=== PATIENT | male | born 1945 | race Caucasian/White ===

== ENCOUNTER 2022-10-20 01:24 | Day surgery (SDC) | payer MEDICARE, SELFPAY ==
[2022-10-11 11:16] VITALS: BMI 26.3
[2022-10-20 12:02] VITALS: BP 174/78; PULSE 57; RESP 18; TEMP 35.6; O2SAT 100
--- NOTE | 2022-10-20 12:12 | PM.HPGS ---
History of Present Illness History of Present Illness Consent: Risks, benefits, and alternatives have been discussed and questions answered. Patient agrees to proceed with procedure. Chief complaint: neoplasm screening Narrative: Adin Siddiqi is a 77 year old male Referred by primary care service for neoplasia screening colonoscopy. Patient accompanied by his . Patient unable to give history because of dementia. Patient's states that he has lost weight perhaps 20-40 lb over the last 2 months. Patient has been treated for diabetes and has rather significant ongoing diarrhea over the last several months as well. 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 Family history is noncontributory. No bleeding has been described. Colonoscopy is requested for screening purposes. Review of Systems Review of Systems: Review of systems noncontributory. [facility] Family History Family History (Updated 01/31/17 @ 18:05 by DOCTOR UNKNOWN) Father Diabetes mellitus Hypertension Family history of coronary artery disease Sibling Diabetes mellitus Hypertension Mother Hypertension Cerebrovascular accident Family history of malignant neoplasm Social History Social History Smoking status: Never smoker Alcohol intake: never Substance use type: does not use Living arrangements: with family Spiritual care concerns: No Meds Home Medications and Allergies Home Medications Medication Instructions Recorded Confirmed Type aspirin 81 mg tablet 81 mg PO DAILY 10/11/22 10/20/22 History atorvastatin 10 mg tablet 10 mg PO DAILY 10/11/22 10/20/22 History cetirizine 10 mg tablet (Zyrtec) 10 mg PO DAILY 10/11/22 10/20/22 History lisinopril 5 mg tablet 5 mg PO DAILY 10/11/22 10/20/22 History metformin 500 mg tablet,extended 500 mg PO BID 10/11/22 10/20/22 History release 24 hr eteujfzl-oeqropjl-xrzsq acid 400 1 tablet PO DAILY 10/11/22 10/20/22 History mcg-vit K 20 mcg-lycop 300 mcg tablet Allergies Allergy/AdvReac Type Severity Reaction Status Date / Time No Known Allergies Allergy Verified 10/20/22 11:59 Vital Signs Vital Signs - 24 hr 10/20/22 12:02 Temperature 96.0 F L Pulse Rate 57 L Respiratory Rate 18 Blood Pressure 174/78 H Pulse Oximetry 100 Oxygen Delivery Room Air Exam Narrative: Physical exam reveals patient to be alert. Vital signs stable. HEENT exam is unremarkable. Patient is anicteric. Lungs are clear to auscultation and percussion. Heart is without murmur or extra sounds. Abdomen bowel sounds are present soft nontender with no organomegaly. Digital external rectal exam normal. Assessment and Plan Assessment and plan (1) Encounter for screening colonoscopy: Code(s): Z12.11 - Encounter for screening for malignant neoplasm of colon Status: Acute Assessment and Plan: Patient referred for neoplasia screening by primary care service colonoscopy to be performed today. (2) Weight loss: Code(s): R63.4 - Abnormal weight loss Status: Acute Assessment and Plan: Patient with recent weight loss over last 2 months. This is non intentional. Family is concerned and have requested colonoscopy to evaluate more thoroughly. (3) Diarrhea: Code(s): R19.7 - Diarrhea, unspecified Status: Acute Assessment and Plan: Patient reported to have chronic diarrhea etiology unclear. May be related to his diabetes. recent workup not available for review. Colonoscopy requested by primary care service will be performed.
[2022-10-20] MEDS: LACTATED RINGERS 1,000 ML 150 ML IV CONT (12:18)
[2022-10-20] MEDS: GENTAMICIN 80MG/SOD CHL 50 ML 80 MG/50 ML BAG 100 MG IVPB (12:19)
[2022-10-20 12:22] LABS: Glucose Point of Care 96 mg/dl (65-105)
--- NOTE | 2022-10-20 12:31 | P.PNAN_ITS ---
Anes - Initial Pre Proc Eval Procedure: Operation Date: 10/20/22 12:30 Proposed Procedures p Screening Colonoscopy - Bill Tatum MD Date/Time: 10/20/22 12:31 Surgeon: Bill Tatum MD Pre Op Diagnosis: neoplasm screening Patient Data Age: 77 Gender: M Height: 1.73 m Weight: 76.1 kg Last Vital Signs Temp 96.0 F L 10/20/22 12:02 Pulse 57 L 10/20/22 12:02 Resp 18 10/20/22 12:02 BP 174/78 H 10/20/22 12:02 Pulse Ox 100 10/20/22 12:02 O2 Del Method Room Air 10/20/22 12:02 Allergies Allergy/AdvReac Type Severity Reaction Status Date / Time No Known Allergies Allergy Verified 10/20/22 11:59 Home Medications Medication Instructions Recorded Confirmed Type aspirin 81 mg tablet 81 mg PO DAILY 10/11/22 10/20/22 History atorvastatin 10 mg tablet 10 mg PO DAILY 10/11/22 10/20/22 History cetirizine 10 mg tablet (Zyrtec) 10 mg PO DAILY 10/11/22 10/20/22 History lisinopril 5 mg tablet 5 mg PO DAILY 10/11/22 10/20/22 History metformin 500 mg tablet,extended 500 mg PO BID 10/11/22 10/20/22 History release 24 hr khzxavyp-otaqlzdt-cevib acid 400 1 tablet PO DAILY 10/11/22 10/20/22 History mcg-vit K 20 mcg-lycop 300 mcg tablet Laboratory Tests 10/20/22 12:12 POC Capillary Glucose 96 mg/dl (65-105) Patient hx anesthesia problems: none Family hx anesthesia problems: none Results Review: All pre-operative results and documents have been reviewed as part of the pre- operative evaluation. [facility] Family History Family History (Updated 01/31/17 @ 18:05 by DOCTOR UNKNOWN) Father Diabetes mellitus Hypertension Family history of coronary artery disease Sibling Diabetes mellitus Hypertension Mother Hypertension Cerebrovascular accident Family history of malignant neoplasm Social History Social History Smoking status: Never smoker Alcohol intake: never Substance use type: does not use Living arrangements: with family Spiritual care concerns: No Anes - Eval Final PreProcedure Day of Procedure 10/20/22 12:31 Patient weight: normal Heart: regular rate and rhythm Lungs: clear to auscultation Airway: Mallampati scale class II Neurological: alert and oriented Last oral intake: >/= 8 hours ASA classification: III Emergent: no Anesthetic plan: proceed Anesthesia type and monitoring: general GIVS and standard monitoring Results Review: All pre-operative results and documents have been reviewed as part of the pre- operative evaluation. Informed Consent: The patient's anesthetic plan and its attendant risks and benefits were discussed with the patient/family/POA. Questions were solicited and answers provided to the satisfaction of the patient/family/POA.
[2022-10-20] MEDS: AMPICILLIN 2 GM/NS 100 ML 2 GM/100 ML BAG IVPB (12:49)
[2022-10-20 13:13] VITALS: BP 120/71; PULSE 54; RESP 23; O2SAT 100
[2022-10-20 13:23] VITALS: BP 138/87; PULSE 55; RESP 19; O2SAT 99
[2022-10-20 13:33] VITALS: BP 162/86; PULSE 50; RESP 21; O2SAT 100
== END 2022-10-20 13:43 | disposition home or self-care (01) ==
PROVIDERS: PCP Internal Medicine; Visit Provider Internal Medicine Gastroenterology
PROC: 0DJD8ZZ Inspection of Lower Intestinal Tract, Via Natural or Artificial Opening Endoscopic (ICD-10-PCS; CPT 45378; principal; 2022-10-20 12:30)
DX: Z12.11 Encounter for screening for malignant neoplasm of colon (principal); K64.4 Residual hemorrhoidal skin tags; R19.7 Diarrhea, unspecified; R63.4 Abnormal weight loss; F03.90 Unspecified dementia, unspecified severity, without behavioral disturbance, psychotic disturbance, mood disturbance, and anxiety; E11.9 Type 2 diabetes mellitus without complications; Z95.3 Presence of xenogenic heart valve; Z79.84 Long term (current) use of oral hypoglycemic drugs; Z79.82 Long term (current) use of aspirin
CPT/HCPCS: 45380; 82948; 88305; J0290; J1580; J2704; J7120

== ENCOUNTER 2025-02-27 11:36 | Outpatient (CLI) | payer MEDICARE, SELFPAY ==
--- OUTSIDE RECORDS SUMMARY | 2025-02-27 10:30 | XMS_ITS | Encounter Summary ---
Author Organization [facility] [employer] [facility] Address [address] [place] [address] Care Team Providers Care Patient Liaison Name Role Phone Kenton Sharma MD Primary Care Provider Reason for Visit * Reason Comments Establish Care Encounter Details Date Type Department Care Team (Late st Contact Info) Description 02/27/2025 10:30 AM CDT Office Visit [facility] Oncology and Hematology - [place] [place] [address] Tatiana Wilkerson MD [address] [place] [address] Chronic anemia (Primary Dx) Social History Tobacco Use Types Packs/Day Years Used Date Smoking Tobacco: Never Smokeless Tobacco: Never Alcohol Use Standard Drinks/Week Comments Not Currently 0 (1 standard drink = 0.6 oz pur e alcohol) Sex and Gender Information Value Date Recorded Sex Assigned at Not on file Legal Sex Male 2:48 PM [employer] Gender Identity Not on file Sexual Orientation Not on file documented as of this encounter Last Filed Vital Signs Vital Sign Reading Time Taken Comments Blood Pressure 150/80 02/27/2025 10:47 AM CDT Pulse 70 02/27/2025 10:44 AM CDT Temperature 37.2 C (99 F) 02/27/2025 10:44 AM CDT Respiratory Rate 16 02/27/2025 10:44 AM CDT Oxygen Saturation 97% 02/27/2025 10:44 AM CDT Inhaled Oxygen Concentration - - Weight 70.9 kg (156 lb 6.4 oz) 02/27/2025 10:44 AM CDT Height 172.7 cm (5' 8) 02/27/2025 10:44 AM CDT Body Mass Index 23.78 02/27/2025 10:44 AM CDT documented in this encounter Plan of Treatment Upcoming Encounters Date Type Department Care Team (Late st Contact Info) Description 04/03/2025 4:30 PM CDT Telephone Check Up [facility] Oncology and Hematology [facility] [address] [place] [phone] Jeremiah Emerson MD [address] [facility] [address] [place] [address] Scheduled Orders Name Type Priority Associated Diagnoses Orde r Schedule CBC WITH DIFFERENTIAL Lab Stat Chronic anemia Expected: 02/27/2025, Expires: 02/27/2026 FERRITIN Lab Routine Chronic anemia Expected: 02/27/2025, Expires: 02/27/2026 IRON, TIBC, AND PERCENT SATURATION Lab Routine Chronic anemia Expected: 02/27/2025, Expires: 02/27/2026 VITAMIN B12 AND FOLATE Lab Routine Chronic anemia Expected: 02/27/2025, Expires: 02/27/2026 TSH Lab Routine Chronic anemia Expected: 02/27/2025, Expires: 02/27/2026 RETICULOCYTES Lab Routine Chronic anemia Expected: 02/27/2025, Expires: 02/27/2026 PROTEIN ELECTROPHORESIS W/REFLEX,SERUM Lab Routine Chronic anemia Expected: 02/27/2025, Expires: 02/27/2026 KAPPA/LAMBDA, FREE LIGHT CHAINS Lab Routine Chronic anemia Expected: 02/27/2025, Expires: 02/27/2026 documented as of this encounter Visit Diagnoses Diagnosis Chronic anemia- Primary Anemia, unspecified documented in this encounter Care Teams Patient Liaison Relationship Specialty Start Date End Date Kenton Sharma MD [address] [place] [address] PCP - General Internal Medicine 02/27/25 documented as of this encounter
[2025-02-27 12:01] LABS: Hematocrit 38.0 % (42.0-52.0); Hemoglobin 13.2 g/dL (14.0-18.0); Immature Granulocyte Percent A 0.4 % (0-0.5); Immature Reticulocyte Fraction 3.1 % (3.0-15.9); Lymphocytes Absolute Auto 0.42 K/mm3 (0.9-3.2); Mean Corpuscular HGB Conc 34.7 g/dl (32-36); Mean Corpuscular Hemoglobin 31.7 pg (26-34); Mean Corpuscular Volume 91.3 fl (80-100); Nucleated Red Blood Cells Absolute Auto 0.000 K/mm3 (0.0-0.012); Nucleated Red Blood Cells Perc 0.0 % (0.0-0.2); Platelet Count Result 164 k/mm3 (150-375); Red Blood Count 4.16 M/mm3 (4.6-6.20); Reticulocyte Hemoglobin Conten 36.7 pg (28.2-36.6); Reticulocytes Absolute 0.05 10^6/uL (0.02-0.10); White Blood Count 5.2 K/mm3 (4.5-10.0)
[2025-02-27 12:27] LABS: Iron 49 ug/dL (49-181)
[2025-02-27 12:40] LABS: Percent Iron Saturation 18 % (20-50)
[2025-02-27 12:59] LABS: Thyroid Stimulating Hormone 1.820 uIU/mL (0.465-4.680)
[2025-02-27 13:08] LABS: Ferritin 89.80 ng/mL (11.1-264)
[2025-02-27 13:35] LABS: Vitamin B12 501.0 pg/mL (239-931)
--- OUTSIDE RECORDS SUMMARY | 2025-02-27 13:48 | XMS_ITS | Clinical Summary ---
Author Organization [facility] [address] [place] [address] Care Team Providers Care Driver Medic Name Role Phone Alex Sharma MD Primary Care Provide r Manny Ontiveros MD Unavailable Allergies Active Allergy Reactions Criticality Noted Date Comments Donepezil Rash Medium 12/14/2016 Metformin Other (See comments) Reaction: diarhea, Medications aspirin 81 mg tablet Take one by mouth one time per day with niaspan 30 6 11/19/2008 Active atorvastatin calcium (ATORVASTATIN ORAL) Take 10 mg by mouth nightly 07/20/2021 Active lisinopriL (PRINIVIL,ZESTR IL) 5 mg tablet Take 5 mg by mouth daily 05/27/2021 Active multivitamin capsule Take 1 capsule by mouth daily Active cetirizine (ZyrTEC) 10 mg tablet Take 10 mg by mouth daily Active escitalopram (LEXAPRO) 10 mg tablet Take 1 tablet (10 mg total) by mouth daily 12/24/2024 Active Active Problems Problem Noted Date Diagnosed Date Aortic stenosis, severe 11/30/2021 Severe aortic stenosis 10/21/2021 Overview (10/21/2021): Added automatically from request for surgery [id number] Type 2 diabetes mellitus 11/02/2013 Overview (09/21/2016): DMII WO CMP NT ST UNCNTR Persistent insomnia 11/02/2013 Overview (09/21/2016): PERSISTENT INSOMNIA Generalized anxiety disorder 11/02/2013 Overview (09/21/2016): GENERALIZED ANXIETY DIS 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/02/2013 Overview (09/21/2016): MIXED HYPERLIPIDEMIA Benign hypertension 11/02/2013 Overview (09/22/2016): BENIGN HYPERTENSION Hypertension 11/02/2013 Overview (09/22/2016): HYPERTENSION NOS Hyperlipidemia 11/02/2013 Overview (09/24/2016): HYPERLIPIDEMIA NEC/NOS Frontotemporal dementia 08/02/2013 Overview (09/22/2016): Fronto-temporal dementia Bipolar II disorder 09/06/2007 Overview (09/22/2016): Bipolar 2 disorder Encounters Date Type Department Care Team Description 01/14/2025 2:30 PM CDT Office Visit [facility] [address] [place] [phone] Aster, Fan Samaniego MD Ataxia (Primary Dx); Other abnormalities of gait and mobility; Imbalance; Frontotemporal dementia (HCC) from Last 3 Months Immunizations Immunization Administration Dates Next Due Influenza, Split 04/26/2011,04/22/2010 Influenza, Trivalent, IM (MDV) 04/20/2009,2007 Influenza, Trivalent, Preservative Free, Intramu scular 04/17/2012 Pneumococcal Polysaccharide PPV23 03/13/2008 Surgical History Surgery Date Site/Laterality Comments FINGER SURGERY finger surgery TONSILLECTOMY CARDIAC CATHETERIZATION Medical History Medical History Date Comments Sleep apnea 2003 Sleep apnea Hyperlipidemia Hyperlipidemia Tonsillitis tonsillitis Dementia (HCC) dementia Type 2 diabetes mellitus Diabete s type 2; Comments: TMB 11/18/2013 - Hypertension Hypertension Chronic coronary artery disease Coronary artery disease Aortic valve stenosis Heart murmur Carotid arterial disease SOBOE (shortness of breath on exertion) Cataract Family History Medical History Relation Name Comments Coronary artery disease Father Hai nary artery disease; Diabetes type II Father Diabetes me llitus type 2; Coronary artery disease Mother Haiandrade bronson artery disease, premature; Leukemia Mother Leukemia; Stroke Mother Stroke; Dementia Other 1 Family history of Dementia; Diabetes Other 2 Family history of Diabetes mellitus; Heart disease Other 3 Family history of Heart disease; Stroke Other 4 Family history of Stroke; Diabetes type II Sister 1 Diabetes -T ype II; Diabetes type II Sister 2 Diabetes me llitus type 2; Relation Name Status Comments Father Mother Other 1 Other 2 Other 3 Other 4 Sister 1 Sister 2 Social History Tobacco Use Types Packs/Day Years Used Date Smoking Tobacco: Never Tobacco Cessation:Counseling Given: Not Answered Alcohol Use Standard Drinks/Week Comments No 0 (1 standard drink = 0.6 oz pur e alcohol) AUDIT-C Answer Date Recorded Q1: How often do you have a drink containing alcohol? Never 11/30/2021 Q2: How many drinks containi ng alcohol do you have on a typical day when you are drinking? Patient does not drink Q3: How often do you have si x or more drinks on one occasion? 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 Gender Identity Not on file Sexual Orientation Not on file Obstetrics History Last Filed Vital Signs Vital Sign Reading Time Taken Comments Blood Pressure 138/88 01/14/2025 2:16 PM CDT Pulse 58 01/14/2025 2:16 PM CDT Temperature 36.7 C (98.1 F) 12/01/2021 12:22 PM CDT Respiratory Rate 16 12/01/2021 12:22 PM CDT Oxygen Saturation 99% 01/14/2025 2:16 PM CDT Inhaled Oxygen Concentration - - Weight 70.8 kg (156 lb) 01/14/2025 2:16 PM CDT Height 172.7 cm (5' 8) 01/14/2025 2:16 PM CDT Body Mass Index 23.72 01/14/2025 2:16 PM CDT Plan of Treatment Health Maintenance Due Date Last Done Comments Albumin Creatinine Ratio, Urine 1944 Depression Screening 1944 Hemoglobin A1C 1944 Dilated Eye Exam 1944 Foot Exam 1944 Hepatitis B Screening 1962 Zoster Vaccine (1 of 2) 1994 Well Visit 65+ 2009 Lipid Panel 10/05/2013 10/05/2012 Fall Risk Assessment 12/01/2022 12/01/2021 eGFR 12/01/2022 12/01/2021, 11/23/2021 Covid-19 Vaccine (4 - 2024-2 6 season) 2025 07/30/2021, 09/22/2020, 08/05/2020 Influenza Vaccine (#1) 2025 , 03/24/2021, 05/01/2019, Additional history exists DTaP/Tdap/Td Vaccine (2 - Td or Tdap) 08/31/2027 08/30/2017 Pneumococcal vaccine 65+ Completed 017, 06/24/2015, 03/13/2008 Medical Devices Implanted Type Area Medical Dermatologist Device Identifier Shelf Expiration Date Model / Serial / Lot [employer] Device Clsr Perclose Prostyle Sut-Mediatd Closure-Repair Sys 31448-85 - [id number] Implanted:Qty: 1 on 11/30/2021 by Manny Ontiveros MD at [facility] [employer] [id number] / / [employer] Device Clsr Perclose Prostyle Sut-Mediatd Closure-Repair Sys 81806-71 - [id number] Implanted:Qty: 1 on 11/30/2021 by Manny Ontiveros MD at [facility] [employer] [id number] / / [employer] Kymberly 3 Commander Ramos 26mm Transcatheter Ultra Low Profile [id number] - [id number] - [id number] Implanted:Qty: 1 on 11/30/2021 by Manny Ontiveros MD at [facility] [employer] 03/29/2023 [id number] / [id number] / Angio-Seal Vip 6fr Closere Device [id number] - [id number] Implanted:Qty: 1 on 11/30/2021 by Manny Ontiveros MD at [facility] 07/19/2022 [id number] / / [id number] Procedures Procedure Name Priority Date/Time Associated Diagnosis Comments EGFR Routine 12/01/2021 7:20 AM CDT SERUM LIPID PANEL Routine 10/05/2012 3:1 0 AM CDT from Last 3 Months or Most Recently Relevant to Health Maintenance Results * eGFR (12/01/2021 7:20 AM CDT) eGFR 73 mL/min/1. 73 m2 GARCIA SANDOVAL Comment: Interpretive Data Reference Interval Normal >/= 90 mL/min/1.73m2 Mildly decreased* 60 - 89 mL/min/1.73m2 Mildly to moderately decreased 45 - 59 mL/min/1.73m2 Moderately to severely decreased 30 - 44 mL/min/1.73m2 Severely decreased 15 - 29 mL/min/1.73m2 Kidney Failure < 15 mL/min/1.73m2 *Relative to young adult level Estimated glomerular filtration rate is determined by the 2020 CKD-EPI equation recommended by the National Kidney Foundation (A Unifying Approach to GFR Estimation: Recommendations of the NKF-ASK Task Force on Reassessing the Inclusion of Race in Diagnosing Kidney Disease, JASN 2020). The CKD-EPI equation should not be used for patients with unstable renal function and has not been validated in children and those over 70. Current interpretive data was last reviewed 2021. Blood 12/01/2021 7:20 AM CDT 12/01/2021 8:20 AM CDT Manny Ontiveros MD LAB BLOOD ORDERABLES Final Resul t GARCIA SANDOVAL [id number] Department [place] [address] * Serum lipid panel (10/05/2012 3:10 AM CDT) Cholesterol 127 125 - 200 mg/dl HISTORICAL RESULTS HDL 50 > OR = 40 mg/dl HISTORICAL RESULTS Triglycerides 111 <150 mg/dl HISTO RICAL RESULTS LDL 55 <130 mg/dl HISTORICA L RESULTS Comment: Desirable range <100 mg/dL for patients with CHD or diabetes and <70 mg/dL for diabetic patients with known heart disease. Chol/HDL ratio 2.5 < OR = 5.0 calc HISTORICAL RESULTS Non-HDL cholesterol, calculated 77 mg/dl HISTORICAL RESULTS Comment: Target for non-HDL cholesterol is 30 mg/dL higher than LDL cholesterol target. Serum 10/05/2012 3:10 AM CDT Narrative HISTORICAL RESULTS - 10/05/2012 10:00 PM CDT Test performed at [facility] [address] [place] [address] Director: IMANI CRISTINA DO,MPH us Historical Provider LAB BLOOD ORDERABLES Shawna ardon Result HISTORICAL RESULTS from Last 3 Months or Most Recently Relevant to Health Maintenance Insurance UHC MEDICARE ADVANTAGE [facility] MEDICARE ADVANTAGE [facility] MEDICARE ADVANTAGE Care Teams Driver Medic Relationship Specialty Start Date End Date Alex Sharma MD [address] [place] [address] PCP - General Internal Medicine 10/20/21 Manny Ontiveros MD [address] [place] [address] Consulting Physician Cardiovascular Disease 12/01/21
--- OUTSIDE RECORDS SUMMARY | 2025-02-27 13:48 | XMS_ITS | Clinical Summary ---
Author Organization [facility] Address [address] [place] [address] Phone Care Team Providers Care Skid Strapper Name Role Phone Kenton Sharma MD Primary Care Provider Allergies No known active allergies Medications aspirin (RYAN CHEWABLE) 81 mg Tablet, Chewable Take 81 mg by mouth daily. Active atorvastatin (LIPITOR) 10 mg tablet Take 10 mg by mouth late in the day. Active cetirizine (ZyrTEC) 10 mg tablet Take 10 mg by mouth daily. Active escitalopram oxalate (LEXAPRO) 10 mg tablet Take 10 mg by mouth daily. 12/24/2024 Active lisinopriL (PRINIVIL) 10 mg tablet Take 10 mg by mouth daily. 10/25/2024 Active Active Problems Problem Noted Date Diagnosed Date Chronic anemia 02/27/2025 Encounters Date Type Department Care Team Description 02/27/2025 10:30 AM CDT Office Visit [facility] Oncology and Hematology - [place] [place] [phone] Tatiana Wilkerson MD Chronic anemia (Primary Dx) from Last 3 Months Family History Medical History Relation Name Comments No Known Problems Child 1 No Known Problems Child 2 No Known Problems Child 4 Diabetes Father Heart Disease Father Cancer Mother female cancer Heart Disease Mother Relation Name Status Comments Child 1 Alive Child 2 Alive Child 3 Unknown Child 4 Alive Father Mother Sister 1 Sister 2 Unknown Sister 3 Alive Social History Tobacco Use Types Packs/Day Years Used Date Smoking Tobacco: Never Smokeless Tobacco: Never Alcohol Use Standard Drinks/Week Comments Not Currently 0 (1 standard drink = 0.6 oz pur e alcohol) Sex and Gender Information Value Date Recorded Sex Assigned at Not on file 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 Gender Identity Not on file Sexual Orientation Not on file Last Filed Vital Signs Vital Sign Reading [...] Mass Index 23.78 02/27/2025 10:44 AM CDT Plan of Treatment Upcoming Encounters Date Type Department Care Team (Late st Contact Info) Description 04/03/2025 4:30 PM CDT Telephone Check Up [facility] Oncology and Hematology - [place] [address] [facility] [address] [place] [address] Jeremiah Emerson MD [address] [facility] [address] [place] [address] Health Maintenance Due Date Last Done Comments DIABETES ANNUAL FOOT EXAM 1962 DIABETES ANNUAL RETINAL EXAM 1962 DIABETES HBA1C Q 6 MONTHS 1962 DIABETES MICROALBUMIN ANNUAL SCREEN 1962 LDL CHOLESTEROL ANNUAL 1962 ZOSTER VACCINE (1 of 2) 1994 PNEUMOCOCCAL VACCINE 50+ YEA RS (2 of 2 - PCV) 03/13/2009 03/13/2008 RSV VACCINE (60+ or ) (1 - 1-dose 75+ series) 2019 [place]) Preventative Visit/Annual Wellness Visit 06/19/2024 10/18/2023 Traditional Medicare (ACO) A nnual Wellness Visit 10/18/2024 10/18/2023 INFLUENZA VACCINE (#1) 2025 , 05/02/2023, 03/16/2022, Additional history exists DTAP/TDAP/TD VACCINES (2 - T d or Tdap) 08/31/2027 08/30/2017 Insurance MEDICARE PART A AND B [employer] MEDICARE SUPPLEMENT [facility] [id number] Care Teams Skid Strapper Relationship Specialty Start Date End Date Kenton Sharma MD [address] [address] PCP - General Internal Medicine 02/27/25
--- OUTSIDE RECORDS SUMMARY | 2025-02-27 13:48 | XMS_ITS | Patient Health Record ---
Author Organization [facility] Address [address] [place] [address] Care Team Providers Care Business Support Coordinator Name Role Phone Edith BOOTH, [place] Primary Care Provider Un available Nathaniel Barrera Unavailable [phone] Reason For Referral No Information Medications Medication SIG (Take, Route, Frequency, Duration) Notes Start Date End Date Status OneTouch Verio Strip In Vitro 03/13/2023 Active Lisinopril 10 MG Tablet Oral 03/13/2023 Active Atorvastatin Calcium 10 MG Tablet Oral 03/13/2023 Active Ipratropium Leona 0.06 % Solution Nasal 03/13/2023 Active Lisinopril 5 MG Tablet Oral 03/13/2023 Active Escitalopram Oxalate 10 MG Tablet Oral 03/13/2023 Active Lexapro 10 MG Tablet Oral 03/13/2023 Active Alfuzosin HCl ER 10 MG Tablet Extended Release 24 Hour Oral 03/13/2023 Active metFORMIN HCl ER 500 MG Tablet Extended Release 24 Hour Oral 03/13/2023 Active OneTouch Delica Plus [id number] Miscellaneous 03/13/2023 Active ONETOUCH VERIO REFLECT METER *Reorder from [employer] for eRx and Interaction Alerts* 03/13/2023 Active SODIUM,POTASSIUM,MAG SULFATES 17.5 GRAM-3.13 GRAM-1.6 GRAM ORAL SOLN *Reorder from [employer] for eRx and Interaction Alerts* 03/13/2023 Active Azithromycin 250 MG Tablet Oral 03/13/2023 Active ZyrTEC Allergy 10 MG Tablet Oral 03/13/2023 Active Immunizations Vaccine Route Administration Date Status Comme nts Influenza virus vaccine, quadrivalent (IIV4), split virus, 0.25 mL dosage Unknown 03/24/2021 Administered Influenza, high dose seasonal Unknown 08/23/2018 Admini stered Influenza, high-dose seasona l, quadrivalent, preservative free >65 yrs Unknown 03/16/2022 Administered Moderna Covid-19 Vaccine 1st dose Unknown 08/05/2020 Ad ministered Moderna Covid-19 Vaccine 1st dose Unknown 09/22/2020 Ad ministered Moderna Covid-19 Vaccine 1st dose Unknown 07/30/2021 Ad ministered Tdap Unknown 08/30/2017 Administered Social History Sex Assigned At : Social History Observation Description Sex Assigned At Male Social History Additional Details Category Social Info Options Details Migrated Social History Migrated Social History Alcohol Intake: None 01/05/2023,Tobacco Years: Never smoker 01/05/2023 Encounters Encounter Location Date Provider Diagnosis [place] [address] [address] [facility] [address] [address] 12/02/2024 Nathaniel Barrera [place] [address] [address] [facility] [address] [address] 12/06/2024 Nathaniel Barrera Plan Of Treatment No Information Insurance Providers Payer Name Payer Address Payer Phone Subscriber Number Group Number Insured Name Patient Relationship to Insured Coverage Start Date Coverage End Date [facility] Medicare Replacement/ [employer]vant[employer] - Ppo [address] [address] [place] [phone] [id number] TOPHER SIMS Self - patient is the insured Medical (General) History Surgical History Surgery Date(Month/Year) Tonsilectomy/adenoids Heart surgery 12/02/2021
[2025-02-28 14:08] LABS: Albumin 4.1 g/dL (2.9-4.4); Alpha-1-Globulin 0.2 g/dL (0.0-0.4); Alpha-2-Globulin 0.6 g/dL (0.4-1.0); Gamma Globulin 1.1 g/dL (0.4-1.8)
[2025-02-28 18:08] LABS: Free Lambda Lt Chains, Serum 26.3 mg/L (5.7-26.3); Kappa/Lambda Ratio, Serum 1.13 (0.26-1.65)
== END 2025-02-27 11:37 | disposition home or self-care (01) ==
LOC: ANHLAB 11:37
PROVIDERS: PCP Internal Medicine; Visit Provider Internal Medicine Hematology & Oncology
DX: D64.9 Anemia, unspecified (principal)
CPT/HCPCS: 36415; 82607; 82728; 82746; 83521; 83540; 83550; 84155; 84165; 84443; 85025; 85046

== ENCOUNTER 2025-05-05 11:00 | Emergency (ER) | payer MEDICARE, SELFPAY ==
--- NOTE | ~2025-05-05 | XR_ITS ---
EXAMINATION: XR chest 1V, 05/05/2025 12:25 LEAD SETTER HISTORY: TRANSIENT ALTERATION OF AWARENESS COMPARISON: No comparisons available. Technique: Single view. Findings: The lungs are clear, no effusion. No pneumothorax. Heart is normal size. Mediastinal and hilar contours are within normal limits. Bony thorax no acute abnormality. Impression: No acute cardiopulmonary abnormality. Reviewed, dictated and finalized at location P. SETTER Impression: No acute cardiopulmonary abnormality.
--- NOTE | ~2025-05-05 | CT_ITS ---
EXAMINATION: CT brain wo con DATE: 05/05/2025 12:35 INDICATION: Injury TECHNIQUE: Computed tomography (CT) of the head was performed without intravenous contrast. The dose-length product was 605.33 mGy-cm. COMPARISON: None FINDINGS: No mass mass effect or hemorrhage. Chronic microvascular ischemic appearing white matter changes. No large acute ischemic event. No depressed skull fracture. Moderately severe diffuse mucoperiosteal thickening in the maxillary sinuses. IMPRESSION: 1. No gross acute intrathoracic process or injury. 2. Moderately severe paranasal sinus disease. 3. Chronic microvessel ischemic changes. Reviewed, dictated and finalized at location A. ROOM CLERK
[2025-05-05 10:59] VITALS: BP 174/93; PULSE 52; RESP 16; TEMP 37.1; O2SAT 98
[2025-05-05 11:08] VITALS: BP 174/93; PULSE 51; RESP 16; O2SAT 98
--- NOTE | 2025-05-05 11:09 | ECG_ITS ---
Test Date: 2025-05-05 11:15:03 Measurements Intervals [place] Rate: 49 P: 3 MO: 190 QRS: -29 QRSD: 104 T: 11 QT: 466 QTc: 424 Interpretive Statements SINUS BRADYCARDIA VOLTAGE CRITERIA FOR LVH, CONSIDER NORMAL VARIANT Electronically Signed On 05-05-2025 11:27:40 APPLICATION ANALYST by Khoa Samuel D.O
[2025-05-05 12:01] VITALS: BP 165/75; PULSE 52; RESP 14; O2SAT 97
[2025-05-05 12:50] LABS: Hematocrit 35.8 % (42.0-52.0); Hemoglobin 12.3 g/dL (14.0-18.0); Immature Granulocyte Percent A 0.4 % (0-0.5); Lymphocytes Absolute Auto 1.42 K/mm3 (0.9-3.2); Mean Corpuscular HGB Conc 34.4 g/dl (32-36); Mean Corpuscular Hemoglobin 31.2 pg (26-34); Mean Corpuscular Volume 90.9 fl (80-100); Nucleated Red Blood Cells Absolute Auto 0.000 K/mm3 (0.0-0.012); Nucleated Red Blood Cells Perc 0.0 % (0.0-0.2); Platelet Count Result 162 k/mm3 (150-375); Red Blood Count 3.94 M/mm3 (4.6-6.20); White Blood Count 5.0 K/mm3 (4.5-10.0)
--- NOTE | 2025-05-05 12:55 | ED.GENADULT ---
HPI - General Adult General Chief complaint: Fall Stated complaint: mechanical fall Time Seen by Provider: 05/05/25 12:13 History of Present Illness HPI narrative: 80-year-old male with history of dementia and gait instability presented to the emergency department for evaluation after having a ground level fall. Patient stumbled over his walker causing a ground level fall and striking his head. Patient denied loss of consciousness. Patient denied any dizziness or lightheadedness prior to or after the fall. Patient denies any injury from the fall. Family states he has been having increased falls recently. Patient is otherwise at his baseline. Patient denies any recent illnesses. Related Data Home Medications ?Medication ?Instructions ?Recorded ?Confirmed ?Last Taken ?Type aspirin 81 mg tablet 81 mg PO DAILY 10/11/22 10/20/22 10/20/22 08:00 History atorvastatin 10 mg tablet 10 mg PO DAILY 10/11/22 10/20/22 10/20/22 08:00 History cetirizine 10 mg tablet (Zyrtec) 10 mg PO DAILY 10/11/22 10/20/22 10/20/22 08:00 History lisinopril 5 mg tablet 5 mg PO DAILY 10/11/22 10/20/22 10/20/22 08:00 History metformin 500 mg tablet,extended 500 mg PO BID 10/11/22 10/20/22 10/19/22 History release 24 hr gvzpsyns-gsgautgp-wvwuz acid 400 1 tablet PO DAILY 10/11/22 10/20/22 10/20/22 08:00 History mcg-vit K 20 mcg-lycop 300 mcg tablet Allergies Allergy/AdvReac Type Severity Reaction Status Date / Time No Known Allergies Allergy Verified 10/20/22 11:59 Review of Systems Review of Systems: All systems reviewed & are unremarkable except as noted in HPI and below PMFSH Family History Family History (Updated 01/31/17 @ 18:05 by DOCTOR UNKNOWN) Father Diabetes mellitus Hypertension Family history of coronary artery disease Sibling Diabetes mellitus Hypertension Mother Hypertension Cerebrovascular accident Family history of malignant neoplasm Social History Social History Smoking status: Never smoker Alcohol intake: never Substance use type: does not use Living arrangements: with family Spiritual care concerns: No Exam Narrative: APPEARANCE: Well appearing, no pain, no distress, well-nourished. HEAD: normocephalic, atraumatic. EYES: PERRLA/EOMI, conjunctivae clear. NOSE: Normal no drainage EARS:TMS clear with good light reflex. THROAT: Pharynx clear, no exudate. NECK: Supple. No adenopathy, no masses. RESPIRATORY: Airway patent, respirations nonlabored. Clear to auscultation bilaterally, no rales, rhonchi, wheezing. CARDIOVASCULAR: Regular rate and rhythm without murmurs rubs or gallops. ABDOMINAL: Soft, nontender, nondistended, normal bowel sounds MUSCULOSKELETAL: Moves all extremities. Strength/ROM intact, No edema, No calf tenderness. NEURO: Alert. Cranial nerves II through XII intact. Good gait. Good coordination SKIN: Warm, dry. Normal Color Course Vital Signs Vital signs: Vital Signs Temperature 98.7 F 05/05/25 10:59 Pulse Rate 52 L 05/05/25 10:59 Respiratory Rate 16 05/05/25 10:59 Blood Pressure 174/93 H 05/05/25 10:59 Pulse Oximetry 98 05/05/25 10:59 Oxygen Delivery Room Air 05/05/25 10:59 Temperature 98.7 F 05/05/25 10:59 Pulse Rate 55 L 05/05/25 14:41 Respiratory Rate 16 05/05/25 14:41 Blood Pressure 172/89 H 05/05/25 14:41 Pulse Oximetry 100 05/05/25 14:41 Oxygen Delivery Room Air 05/05/25 10:59 Medical Decision Making [facility] Narrative Medical decision making narrative: 80-year-old male presents emergency department for evaluation for a mechanical ground level fall. Patient denies any recent illnesses coughs colds or fevers. Patient is currently afebrile with no leukocytosis hemoglobin 12.3. INR 1.1. No acute abnormalities on the CMP UA was negative for infection. Patient was negative for influenza RSV and for COVID. Head CT was negative for any intracranial abnormality and chest x-ray shows no acute cardiopulmonary abnormality. Patient and family were updated the results of the workup. All questions concerns were addressed. Differential Diagnosis Differential Diagnosis: Pneumonia, UTI, subdural hematoma, subarachnoid hemorrhage, COVID, RSV, influenza, dehydration Vital Signs Vital Signs: Vital Signs Temperature 98.7 F 05/05/25 10:59 Pulse Rate 52 L 05/05/25 10:59 Respiratory Rate 16 05/05/25 10:59 Blood Pressure 174/93 H 05/05/25 10:59 Pulse Oximetry 98 05/05/25 10:59 Oxygen Delivery Room Air 05/05/25 10:59 Temperature 98.7 F 05/05/25 10:59 Pulse Rate 55 L 05/05/25 14:41 Respiratory Rate 16 05/05/25 14:41 Blood Pressure 172/89 H 05/05/25 14:41 Pulse Oximetry 100 05/05/25 14:41 Oxygen Delivery Room Air 05/05/25 10:59 Lab Data Lab results reviewed: Yes I reviewed the patient's lab results. 05/05/25 12:44 05/05/25 12:44 Labs: Lab Results 05/05/25 05/05/25 Range/Units 12:44 14:02 WBC 5.0 (4.5-10.0) K/mm3 RBC 3.94 L (4.6-6.20) M/mm3 Hgb 12.3 L (14.0-18.0) g/dL Hct 35.8 L (42.0-52.0) % MCV 90.9 (80-100) fl MCH 31.2 (26-34) pg MCHC 34.4 (32-36) g/dl RDW 12.3 (11.5-14.5) % Plt Count 162 (150-375) k/mm3 MPV 8.9 (7.4-10.4) fl Immature Gran % (Auto) 0.4 (0-0.5) % Neut % (Auto) 58.3 (45.5-73.1) % Lymph % (Auto) 28.5 (18.3-44.2) % [place] % (Auto) 7.2 (2.6-8.5) % Eos % (Auto) 4.8 H (0-4.4) % Baso % (Auto) 0.8 (0.2-1.2) % Lymph # (Auto) 1.42 (0.9-3.2) K/mm3 [place] # (Auto) 0.4 (0.1-0.6) K/mm3 Eos # (Auto) 0.2 (0-0.3) K/mm3 Baso # (Auto) 0.0 (0.0-0.1) K/mm3 Abs Immat Gran (auto) 0.02 (0.00-0.031) K/mm3 Absolute Neuts (auto) 2.9 (1.3-6.7) K/mm3 Absolute Nucleated RBC 0.000 (0.0-0.012) K/mm3 Nucleated RBC % 0.0 (0.0-0.2) % PT 14.5 (11.1-14.7) Seconds INR 1.1 APTT 27.8 (22.3-36.8) Seconds Sodium 134 L (137-145) mmol/L Potassium 4.1 (3.4-5.0) mmol/L Chloride 100 (98-107) mmol/L Carbon Dioxide 27 (22-30) mmol/L Anion Gap 7 (4-12) mmol/L BUN 26 H (9-20) mg/dL Creatinine 0.92 (0.7-1.3) mg/dL Estim Creat Clear Calc 52 ml/min Estimated GFR > 60 (59 - ) Glucose 141 H (65-110) mg/dL Calcium 8.7 (8.4-10.2) mg/dL Total Bilirubin 0.6 (0.2-1.3) mg/dL AST 21 (17-59) U/L ALT 15 (6-50) U/L Alkaline Phosphatase 49 (38-126) U/L Total Protein 6.7 (6.3-8.2) g/dL Albumin 4.0 (3.5-5.1) g/dL Urine Color Yellow (Yellow) Urine Appearance Clear (Clear) Urine pH 5.0 (5.0-9.0) Ur Specific [place] 1.010 (1.001-1.035) Urine Protein Negative (Negative) mg/dL Urine Glucose (UA) Negative (Negative) mg/dL Urine Ketones Negative (Negative) mg/dL Ur Blood (Man) Trace (Negative) Urine Nitrate Negative (Negative) Urine Bilirubin Negative (Negative) Urine Urobilinogen 0.2 (<2.0) mg/dL Leukocyte Esterase Rfl Negative (Negative) YONATHAN/UL Urine RBC 0-2 (0-2) /hpf Urine WBC 0-5 (0-3) /hpf Ur Squamous Epith Cells None seen (Few) /hpf Urine Bacteria None seen /hpf Urine Casts 0-2 Influenza A (RT-PCR) Negative (Negative) Influenza B (RT-PCR) Negative (Negative) RSV (RT-PCR) Negative (Negative) SARS-CoV-2 RNA (RT-PCR) Negative (Negative) Imaging Data Attestation: I personally reviewed and interpreted this imaging study as follows: My impression: Chest x-ray: No acute cardiopulmonary abnormality Radiologist's impression: Impressions Head CT 05/05/25 12:38 IMPRESSION: 1. No gross acute intrathoracic process or injury. 2. Moderately severe paranasal sinus disease. 3. Chronic microvessel ischemic changes. Chest X-Ray 05/05/25 12:40 Impression: No acute cardiopulmonary abnormality. Discharge Plan Discharge Clinical Impression: Head injury Patient Disposition: Home Condition: Stable Instructions: Antibiotic Form, Head Injury (ED) Additional Instructions: Have close follow-up with your primary care physician. If you have any worsening symptoms then please call or return to the emergency department. Patient Language: Tunisian Prescriptions: No Action cetirizine [Zyrtec] 10 mg Tablet 10 mg PO DAILY atorvastatin 10 mg tablet 10 mg PO DAILY Adult Low Dose Aspirin 81 mg Tablet 81 mg PO DAILY lisinopril 5 mg tablet 5 mg PO DAILY metformin 500 mg tablet extended release 24 hr 500 mg PO BID Men's Multivitamin 400-20-300 mcg Tablet 1 tablet PO DAILY Follow-up/Referrals: Edith,MD [place] [Primary Care Provider, Unknown]
[2025-05-05 13:00] VITALS: BP 178/78; PULSE 53; RESP 13; O2SAT 100
[2025-05-05 13:06] LABS: INR 1.1; Prothrombin Time 14.5 Seconds (11.1-14.7)
[2025-05-05 13:07] LABS: Partial Thromboplastin Time 27.8 Seconds (22.3-36.8)
[2025-05-05 13:13] LABS: Alanine Aminotransferase 15 U/L (6-50); Albumin Level 4.0 g/dL (3.5-5.1); Alkaline Phosphatase 49 U/L (38-126); Anion Gap 7 mmol/L (4-12); Aspartate Amino Transferase 21 U/L (17-59); Bilirubin,Total 0.6 mg/dL (0.2-1.3); Blood Urea Nitrogen 26 mg/dL (9-20); Calcium 8.7 mg/dL (8.4-10.2); Carbon Dioxide 27 mmol/L (22-30); Chloride 100 mmol/L (98-107); Estimated CRCL calculation 52 ml/min; Estimated Glomerular Filt Rate > 60; Glucose 141 mg/dL (65-110); Potassium 4.1 mmol/L (3.4-5.0); Sodium 134 mmol/L (137-145); Total Protein 6.7 g/dL (6.3-8.2)
[2025-05-05 13:26] LABS: Influenza A QL RT-PCR Negative (Negative); Influenza B QL RT-PCR Negative (Negative); RSV RNA, RT-PCR Negative (Negative); SARS-CoV-2 RNA PCR Negative (Negative)
[2025-05-05 14:02] VITALS: BP 177/72; PULSE 50; RESP 14; O2SAT 99
[2025-05-05 14:12] LABS: Add Urine Microscopic? YES; Appearance Urine Clear (Clear); Glucose Urine UA Negative (Negative); Leukocyte Esterase Ur Negative LEU/UL (Negative); Nitrate Urine Negative (Negative); Non Pathogenic Casts 0-2; Specific Grav Ur 1.010 (1.001-1.035)
[2025-05-05 14:41] VITALS: BP 172/89; PULSE 55; RESP 16; O2SAT 100
--- OUTSIDE RECORDS SUMMARY | 2025-05-05 21:26 | XMS_ITS | Encounter Summary ---
Author Organization [facility] Address [address] [place] [address] Care Team Providers Care Qc Manager Name Role Phone Alex Sharma MD Primary Care Provide r Manny Ontiveros MD Unavailable Reason for Visit * Reason Onset Date Comments Test Results 04/23/2025 Results Encounter Details Date Type Department Care Team (Late st Contact Info) Description 04/23/2025 Results Follow-Up [facility] Medical [facility] Neurology [address] [place] [id number] Sharona Estrada MA MRI Cervical Spine WO Contrast Social History Tobacco Use Types Packs/Day Years Used Date Smoking Tobacco: Never Alcohol Use Standard Drinks/Week Comments No 0 [...] on file Legal Sex Male 6:29 PM PUMPER HELPER Gender Identity Male 04/24/2025 5:57 PM PUMPER HELPER Sexual Orientation Straight 04/24/2025 5: 57 PM PUMPER HELPER documented as of this encounter Miscellaneous Notes * Telephone Encounter - Sharona Estrada MA - 04/23/2025 1:47 PM CST Patient received [place] test results as follows. MRI of cervical spine shows arthritis but no spinal cord compression or injury. Her MRI brain shows prior stroke but no acute findings. Advise to continue with aspirin 81 mg daily for stroke prevention. Patient and verbally understands the results. ER HELPER * Telephone Encounter - Sharona Estrada MA - 04/23/2025 1:46 PM CST ----- Message from Fan Rodarte MD sent at 04/23/2025 9:37 AM PUMPER HELPER ----- MRI of cervical spine shows arthritis but no spinal cord compression or injury. Her MRI brain shows prior stroke but no acute findings. Advise to continue with aspirin 81 mg daily for stroke prevention. ----- Message ----- From: Interface, Radiology Results In Sent: 04/21/2025 3:14 PM PUMPER HELPER To: Fan Rodarte MD ER HELPER documented in this encounter Plan of Treatment Not on file documented as of this encounter Visit Diagnoses Not on filedocumented in this encounter Care Teams Qc Manager Relationship Specialty Start Date End Date Alex Sharma MD [address] [address] PCP - General Internal Medicine 10/20/21 Manny Ontiveros MD [address] [place] [address] Consulting Physician Cardiovascular Disease 12/01/21 documented as of this encounter
--- OUTSIDE RECORDS SUMMARY | 2025-05-05 21:27 | XMS_ITS | Clinical Summary ---
Author Organization [facility] [address] [place] [id number] Care Team Providers Care Government Gauger Name Role Phone Alex Sharma MD Primary [...] (10/21/2021): Added automatically from request for surgery [id number] Type 2 diabetes mellitus 11/02/2013 Overview (09/21/2016): [...] Encounters Date Type Department Care Team Description 04/23/2025 Results Follow-Up [facility] Neurology [address] [place] [phone] Sharona Estrada MA MRI Cervical Spine WO Contrast 04/21/2025 12:49 PM EXTERNAL AUDITOR - 04/21/2025 11:59 PM EXTERNAL AUDITOR Hospital Encounter [facility] MRI [facility] [place] [address] Ataxia Discharge Disposition: Discharge to home or self care 04/21/2025 12:46 PM EXTERNAL AUDITOR - 04/21/2025 11:59 PM EXTERNAL AUDITOR Hospital Encounter [facility] MRI [facility] [place] [address] Ataxia Discharge Disposition: Discharge to home or self care 03/06/2025 Telephone [facility] Neurology [address] [place] [phone] AsterFan Si, MD MRI (MRI NONE COMPLETIONS ) from Last 3 Months Immunizations Immunization Administration Dates Next Due Influenza, Split 04/26/2011,04/22/2010 Influenza, Trivalent, IM (V) 04/20/2009,2007 Influenza, Trivalent, Preservative Free, Intramu scular 04/17/2012 Pneumococcal Polysaccharide PPV23 03/13/2008 Surgical History Surgery Date Site/Laterality Comments FINGER SURGERY finger surgery TONSILLECTOMY CARDIAC CATHETERIZATION Medical History Medical History Date Comments Sleep apnea 2002 Sleep apnea Hyperlipidemia Hyperlipidemia Tonsillitis tonsillitis Dementia [...] llitus type 2; Coronary artery disease Mother Hai nary artery disease, premature; Leukemia Mother Leukemia; Stroke [...] on file Legal Sex Male 6:29 PM EXTERNAL AUDITOR Gender Identity Male 04/24/2025 5:57 PM EXTERNAL AUDITOR Sexual Orientation Straight 04/24/2025 5: 57 PM EXTERNAL AUDITOR Last Filed Vital Signs Vital Sign Reading [...] 06/24/2015, 03/13/2008 Medical Devices Implanted Type Area White Work Cleaner Device Identifier Shelf Expiration Date Model / Serial / Lot [employer] Device Clsr Perclose Prostyle Sut-Mediatd Closure-Repair Sys 80662-21 - [id number] Implanted:Qty: 1 on 11/30/2021 by Manny Ontiveros MD at [facility] [employer] 29229-22 / / [employer] Device Clsr Perclose Prostyle Sut-Mediatd Closure-Repair Sys 53049-67 - [id number] Implanted:Qty: 1 on 11/30/2021 by Manny Ontiveros MD at [facility] [employer] [id number] / / [employer] Kymberly 3 Commander Ramos 26mm Transcatheter Ultra Low Profile [id number] - [id number] - [id number] Implanted:Qty: 1 on 11/30/2021 by Manny Ontiveros MD at [facility] [employer] 03/29/2023 [id number] / [id number] / Angio-Seal Vip 6fr Closere Device [id number] - [id number] Implanted:Qty: 1 on 11/30/2021 by Manny Ontiveros MD at [facility] [employer] 07/19/2022 [id number] / / [id number] Procedures Procedure Name Priority Date/Time Associated Diagnosis Comments MRI CERVICAL SPINE WO CONTRAST Schedule Routine, Read Routine (OP Routine) 04/21/2025 2:20 PM EXTERNAL AUDITOR Ataxia MRI BRAIN W WO CONTRAST Schedule Routine, Read Routine (OP Routine) 04/21/2025 2:20 PM EXTERNAL AUDITOR Ataxia EGFR Routine 12/01/2021 7:20 AM CDT SERUM LIPID PANEL Routine 10/05/2012 3:1 0 AM CDT from Last 3 Months or Most Recently Relevant to Health Maintenance Results * MRI Cervical Spine WO Contrast (04/21/2025 2:20 PM EXTERNAL AUDITOR) Anatomical Region Laterality Modality Spine N/A Magnetic Resonan ce 04/21/2025 3:11 PM EXTERNAL AUDITOR Impressions 04/21/2025 3:11 PM EXTERNAL AUDITOR 1. Mild to moderate cervical disc degeneration with thickened ligamentum flavum, uncovertebral spurring and facet arthropathy as described. There is no high-grade spinal canal stenosis. 2. Varying degrees of bilateral neural foraminal narrowing and other findings as above. 3. In the setting of trauma a CT has higher sensitivity for spinal fractures and can be obtained as clinically indicated. Electronically signed by: Markos Law D.O. Narrative 04/21/2025 3:11 PM EXTERNAL AUDITOR EXAM DESCRIPTION:MRI CERVICAL SPINE WO CONTRAST REASON FOR STUDY:Shuffling gait, ataxia, pt fell at home today, striking head. No surgery. . Ataxia, nontraumatic, cervical pathology suspected TECHNIQUE: Sagittal and Axial imaging includes T1, T2, STIR and gradient echo sequences. COMPARISON:None available. FINDINGS: Some of the sequences are degraded by patient motion and pulsation related artifact. ALIGNMENT: Mild exaggerated cervical lordosis. Mild anterolisthesis of C2 on C3. Mild retrolisthesis of C3 on C4, C4 on C5 and C5 on C6. VERTEBRAE: There is no gross acute compression fracture in the cervical spine within the confines of the STIR sequence limited by artifact. In the setting of trauma a CT has higher sensitivity for fractures and can be obtained as clinically indicated. Multilevel endplate degenerative change and marginal spur formation. The C1-C2 level and adjacent atlantooccipital interval STIR hyperintense signal is nonspecific but commonly reflect degenerative change. DISCS: Multilevel disc desiccation and height loss. HARDWARE: None in the spine. CORD: Portion of the cervical cord is not well seen due to patient motion and pulsation artifact. As imaged there is no definite T2 hyperintense cord signal alteration that is reproduced on 2 separate sequences. INDIVIDUAL LEVELS: C2-C3: Anterolisthesis of C2 on C3 with unroofing disc. Thickened ligamentum flavum. No significant spinal canal stenosis. Uncovertebral spurring and facet arthropathy with mild to moderate left and no significant right neural foraminal narrowing. C3-C4: Posterior disc osteophyte complex without significant spinal canal stenosis. Uncovertebral spurring and facet arthropathy with mild right and moderate left neural foraminal narrowing. C4-C5: Posterior disc osteophyte complex and thickened ligamentum flavum. No significant spinal canal stenosis. Uncovertebral spurring and facet arthropathy with moderate bilateral neural foraminal narrowing. C5-C6: Posterior disc osteophyte complex and thickened ligamentum flavum. Mild spinal canal stenosis. Uncovertebral spurring and facet arthropathy with moderate to severe right and mild left neural foraminal narrowing. C6-C7: Posterior disc osteophyte complex without significant spinal canal stenosis. Neural foramen are not well seen due to artifact, no gross high-grade stenosis. C7-T1: No significant disc bulge or spinal canal stenosis. Neural foramen are not well seen due to artifact, no gross high-grade stenosis. UPPER THORACIC: Incompletely imaged. Degenerative changes without high-grade spinal canal stenosis. Procedure Note Markos Law, DO - 04/21/2025 EXAM DESCRIPTION:MRI CERVICAL SPINE WO CONTRAST REASON FOR STUDY:Shuffling gait, ataxia, pt fell at home today, striking head. No surgery. . Ataxia, nontraumatic, cervical pathology suspected TECHNIQUE: Sagittal and Axial imaging includes T1, T2, STIR and gradient echo sequences. COMPARISON:None available. FINDINGS: Some of the sequences are degraded by patient motion and pulsation related artifact. ALIGNMENT: Mild exaggerated cervical lordosis. Mild anterolisthesis of C2 on C3. Mild retrolisthesis of C3 on C4, C4 on C5 and C5 on C6. VERTEBRAE: There is no gross acute compression fracture in the cervical spine within the confines of the STIR sequence limited by artifact. In the setting of trauma a CT has higher sensitivity for fractures and can be obtained as clinically indicated. Multilevel endplate degenerative change and marginal spur formation. The C1-C2 level and adjacent atlantooccipital interval STIR hyperintense signal is nonspecific but commonly reflect degenerative change. DISCS: Multilevel disc desiccation and height loss. HARDWARE: None in the spine. CORD: Portion of the cervical cord is not well seen due to patient motion and pulsation artifact. As imaged there is no definite T2 hyperintense cord signal alteration that is reproduced on 2 separate sequences. INDIVIDUAL LEVELS: C2-C3: Anterolisthesis of C2 on C3 with unroofing disc. Thickened ligamentum flavum. No significant spinal canal stenosis. Uncovertebral spurring and facet arthropathy with mild to moderate left and no significant right neural foraminal narrowing. C3-C4: Posterior disc osteophyte complex without significant spinal canal stenosis. Uncovertebral spurring and facet arthropathy with mild right and moderate left neural foraminal narrowing. C4-C5: Posterior disc osteophyte complex and thickened ligamentum flavum. No significant spinal canal stenosis. Uncovertebral spurring and facet arthropathy with moderate bilateral neural foraminal narrowing. C5-C6: Posterior disc osteophyte complex and thickened ligamentum flavum. Mild spinal canal stenosis. Uncovertebral spurring and facet arthropathy with moderate to severe right and mild left neural foraminal narrowing. C6-C7: Posterior disc osteophyte complex without significant spinal canal stenosis. Neural foramen are not well seen due to artifact, no gross high-grade stenosis. C7-T1: No significant disc bulge or spinal canal stenosis. Neural foramen are not well seen due to artifact, no gross high-grade stenosis. UPPER THORACIC: Incompletely imaged. Degenerative changes without high-grade spinal canal stenosis. IMPRESSION: 1. Mild to moderate cervical disc degeneration with thickened ligamentum flavum, uncovertebral spurring and facet arthropathy as described. There is no high-grade spinal canal stenosis. 2. Varying degrees of bilateral neural foraminal narrowing and other findings as above. 3. In the setting of trauma a CT has higher sensitivity for spinal fractures and can be obtained as clinically indicated. Electronically signed by: Markos Law D.O. us Fan Rodarte MD [facility] MRI PROCEDURES Final Result * MRI Brain W WO Contrast (04/21/2025 2:20 PM EXTERNAL AUDITOR) Anatomical Region Laterality Modality Head and Neck N/A Magnetic Resonan ce 04/21/2025 3:04 PM EXTERNAL AUDITOR Impressions 04/21/2025 3:04 PM EXTERNAL AUDITOR 1. No acute/recent infarction. 2. Chronic infarctions, chronic microvascular ischemic-type white matter changes and other findings as above. 3. Previous imaging studies are not available for comparison. Electronically signed by: Markos Law D.O. Narrative 04/21/2025 3:04 PM EXTERNAL AUDITOR EXAM DESCRIPTION:MRI BRAIN W WO CONTRAST REASON FOR STUDY:Shuffling gait, ataxia, pt fell at home today, striking head. No surgery. . Parkinsonian syndrome TECHNIQUE: Multiplanar imaging includes noncontrast T1, T2, FLAIR, diffusion with ADC map and post contrast T1 sequences. Additional sequence(s) sensitive to blood products. Images stored on PACS. CONTRAST TYPE/DOSE:gadoterate meglumine injection 14 mL was administered intravenously. COMPARISON:None available FINDINGS: There is no diffusion restriction to suggest acute/recent infarction. The bilateral basal ganglia susceptibility signal will be compatible with mineralization. There is bilateral cerebral and cerebellar parenchymal volume loss. The basilar cisterns are maintained. Small chronic infarctions in the bilateral palmer radiata and basal ganglia. Additional subtle tiny chronic infarctions in the bilateral cerebellar hemispheres. Elsewhere the brain the subcortical and periventricular white matter T2/FLAIR hyperintense signal in the bilateral cerebral hemispheres is nonspecific but compatible with chronic microvascular ischemic-type change in a patient of this age. Similar signal alteration is seen in the carrol. On postcontrast imaging, there is no enhancing parenchymal mass. The bilateral globes are symmetric. There is mucosal thickening scattered throughout the paranasal sinuses. Trace T2 hyperintensities in the mastoid air cells, left more than right. Procedure Note Markos Law, DO - 04/21/2025 EXAM DESCRIPTION:MRI BRAIN W WO CONTRAST REASON FOR STUDY:Shuffling gait, ataxia, pt fell at home today, striking head. No surgery. . Parkinsonian syndrome TECHNIQUE: Multiplanar imaging includes noncontrast T1, T2, FLAIR, diffusion with ADC map and post contrast T1 sequences. Additional sequence(s) sensitive to blood products. Images stored on PACS. CONTRAST TYPE/DOSE:gadoterate meglumine injection 14 mL was administered intravenously. COMPARISON:None available FINDINGS: There is no diffusion restriction to suggest acute/recent infarction. The bilateral basal ganglia susceptibility signal will be compatible with mineralization. There is bilateral cerebral and cerebellar parenchymal volume loss. The basilar cisterns are maintained. Small chronic infarctions in the bilateral palmer radiata and basal ganglia. Additional subtle tiny chronic infarctions in the bilateral cerebellar hemispheres. Elsewhere the brain the subcortical and periventricular white matter T2/FLAIR hyperintense signal in the bilateral cerebral hemispheres is nonspecific but compatible with chronic microvascular ischemic-type change in a patient of this age. Similar signal alteration is seen in the carrol. On postcontrast imaging, there is no enhancing parenchymal mass. The bilateral globes are symmetric. There is mucosal thickening scattered throughout the paranasal sinuses. Trace T2 hyperintensities in the mastoid air cells, left more than right. IMPRESSION: 1. No acute/recent infarction. 2. Chronic infarctions, chronic microvascular ischemic-type white matter changes and other findings as above. 3. Previous imaging studies are not available for comparison. Electronically signed by: Markos Law D.O. us Fan Rodarte MD IM[facility] MRI PROCEDURES Final Result * eGFR (12/01/2021 7:20 AM CDT) eGFR [...] 7:20 AM CDT 12/01/2021 8:20 AM CDT us Manny Ontiveros MD LAB BLOOD ORDERABLES Final Resul t [id number] Department [place] [address] * Serum lipid panel (10/05/2012 [...] 10/05/2012 10:00 PM CDT Test performed at [facility] [address] [place] [address] Director: IMANI CRISTINA DO,MPH us Historical Provider LAB BLOOD ORDERABLES Shawna duglas Result HISTORICAL RESULTS from Last 3 Months or Most Recently Relevant to Health Maintenance Insurance [employer] MED[employer]ARE [employer]VANTAGE [place] [id number] [employer] MED[employer]AGE [place] [id number] [employer] MEDICARE ADVANTAGE Care Teams Government Gauger Relationship Specialty Start Date End Date Alex Sharma MD [address] [facility] [address] [place] [address] PCP - General Internal Medicine 10/20/21 Manny Ontiveros MD [address] [place] [address] Consulting Physician Cardiovascular Disease 12/01/21
== END 2025-05-05 14:43 | disposition home or self-care (01) ==
PROVIDERS: Emergency Provider Emergency Medicine; PCP Internal Medicine
DX: S09.90XA Unspecified injury of head, initial encounter (principal); Z20.822 Contact with and (suspected) exposure to COVID-19; F03.90 Unspecified dementia, unspecified severity, without behavioral disturbance, psychotic disturbance, mood disturbance, and anxiety; J32.9 Chronic sinusitis, unspecified; R00.1 Bradycardia, unspecified; Z79.82 Long term (current) use of aspirin; W18.09XA Striking against other object with subsequent fall, initial encounter
CPT/HCPCS: 36415; 70450; 71045; 80053; 81001; 85025; 85610; 85730; 87637; 93005; 99284